=== PATIENT | female | born 1990 | race African-American/Black ===

== ENCOUNTER 2017-03-20 17:24 | Emergency (ER) | payer SELFPAY ==
--- NOTE | 2017-03-20 17:49 | ER Document Report ---
ED Medical Screen (RME) - General Chief Complaint: Abdominal Pain Stated Complaint: STOMACH PAIN Time Seen by Provider: 03/20/17 17:47 Mode of Arrival: Ambulatory Information source: Patient TRAVEL OUTSIDE OF THE [place] IN LAST 30 DAYS: No - HPI Patient complains to provider of: abd pain; urinary sx's Onset: Other - pt started azo OTC for presumed UTI earlier this week. Urinary symptoms with dysuria and frequency have continued. - Related Data Allergies/Adverse Reactions: No Known Allergies Allergy (Unverified 03/20/17 17:37) Past Medical History Renal/ Medical History: Denies: Hx Peritoneal Dialysis Physical Exam - Vital signs Vitals: Temp Pulse Resp BP Pulse Ox 98.6 F 101 H 18 136/79 H 96 03/20/17 17:36 03/20/17 17:36 03/20/17 17:36 03/20/17 17:36 03/20/17 17:36 Course - Vital Signs Vital signs: Temp Pulse Resp BP Pulse Ox 98.6 F 101 H 18 136/79 H 96 03/20/17 17:36 03/20/17 17:36 03/20/17 17:36 03/20/17 17:36 03/20/17 17:36
--- NOTE | 2017-03-20 18:18 | ER Document Report ---
ED GI/ - General Chief Complaint: Abdominal Pain Stated Complaint: STOMACH PAIN Time Seen by Provider: 03/20/17 17:47 Mode of Arrival: Ambulatory Information source: Patient Notes: 26 yo normally healthy except asthma female c/o urinary frequency, urgency, voiding small amount, fatique, right pelvic pain (when urge to urinate), dizzy, headache, nausea, low back pain all the way across x 4 days. Took AZO but symptoms persisted. Nausea but no vomiting or diarrhea. No hx kidney stones, no abd. surgery, no vaginal discharge, no dyspareunia, no new sex partner, hx chlamydia age 18, . TRAVEL OUTSIDE OF THE [place] IN LAST 30 DAYS: No - Related Data Allergies/Adverse Reactions: No Known Allergies Allergy (Unverified 03/20/17 17:37) Home Medications: Current Home Medications Acetaminophen [Tylenol Arthritis] 650 mg PO DAILY 03/20/17 [History] Pumpkin Seed Extract/Soy Germ [Azo Bladder Control Capsule] 300 mg PO DAILY 02/24 [History] Past Medical History - General Information source: Patient - Social History Smoking Status: Never Smoker Frequency of alcohol use: None Drug Abuse: None Lives with: Family Family History: Reviewed & Not Pertinent Patient has suicidal ideation: No Patient has homicidal ideation: No - Medical History Medical History: Negative Renal/ Medical History: Denies: Hx Peritoneal Dialysis Surgical Hx: Negative Review of Systems - Review of Systems Constitutional: No symptoms reported. denies: Diaphoresis EENT: No symptoms reported Cardiovascular: No symptoms reported Respiratory: No symptoms reported Gastrointestinal: No symptoms reported Genitourinary: See HPI Female Genitourinary: See HPI Musculoskeletal: No symptoms reported Skin: No symptoms reported Hematologic/Lymphatic: No symptoms reported Neurological/Psychological: No symptoms reported Physical Exam - Vital signs Vitals: Temp Pulse Resp BP Pulse Ox 98.6 F 101 H 18 136/79 H 96 03/20/17 17:36 03/20/17 17:36 03/20/17 17:36 03/20/17 17:36 03/20/17 17:36 Interpretation: Normal - General General appearance: Appears well, Alert In distress: None - HEENT Head: Normocephalic, Atraumatic Eyes: Normal Pupils: PERRL Neck: Supple - Respiratory Respiratory status: No respiratory distress Chest status: Nontender Breath sounds: Normal Chest palpation: Normal - Cardiovascular Rhythm: Regular Heart sounds: Normal auscultation Murmur: No - Abdominal Inspection: Normal Distension: No distension Bowel sounds: Normal Tenderness: Nontender. No: Tender Organomegaly: No organomegaly - Back Back: Normal, Nontender. No: CVA tenderness - Extremities General upper extremity: Normal inspection, Nontender, Normal color, Normal ROM , Normal temperature General lower extremity: Normal inspection, Nontender, Normal color, Normal ROM , Normal temperature, Normal weight bearing. No: Narda's sign - Neurological Neuro grossly intact: Yes Cognition: Normal Orientation: AAOx4 [place] Coma Scale Eye Opening: Spontaneous Shahrzad Coma Scale Verbal: Oriented Shahrzad Coma Scale Motor: Obeys Commands Shahrzad Coma Scale Total: 15 Speech: Normal Motor strength normal: LUE, RUE, LLE, RLE Sensory: Normal - Psychological Associated symptoms: Normal affect, Normal mood - Skin Skin Temperature: Warm Skin Moisture: Dry Skin Color: Normal Course - Re-evaluation Re-evalutation: 03/20/17 urine culture pending, will treat for UTI, sx most consistant with cystitis - Vital Signs Vital signs: Temp Pulse Resp BP Pulse Ox 98.8 F 86 18 129/80 H 99 03/20/17 19:32 03/20/17 19:32 03/20/17 19:32 03/20/17 19:32 03/20/17 19:32 - Laboratory Result Diagrams: 03/20/17 18:00 03/20/17 18:00 Laboratory results interpreted by me: 03/20/17 03/20/17 18:00 18:00 WBC 11.6 H Urine Nitrite POSITIVE H Urine Urobilinogen 4.0 H Urine Ascorbic Acid 20 H Discharge - Discharge Clinical Impression: Urinary tract infection Qualifiers: Urinary tract infection type: site unspecified Hematuria presence: without hematuria Qualified Code(s): N39.0 - Urinary tract infection, site not specified Condition: Good Disposition: HOME, SELF-CARE Instructions: Cephalexin ([facility]), Urinary Tract Infection ([facility]) Additional Instructions: plenty of fluids may continue the AZO for few days to er if increased pain, fever, chills, vomiting Prescriptions: Cephalexin [Cephalexin 500 MG Capsule] 500 mg PO QID #30 capsule Forms: Return to Work
[2017-03-20 18:30] LABS: ABSOLUTE BASOPHILS # (AUTO) 0.1 10^3/uL (0.0-0.2); ABSOLUTE EOSINOPHILS # (AUTO) 0.2 10^3/uL (0.0-0.6); ABSOLUTE LYMPHOCYTES (AUTO) 2.9 10^3/uL (0.5-4.7); ABSOLUTE MONOCYTES (AUTO) 0.7 10^3/uL (0.1-1.4); ABSOLUTE NEUT (AUTO) 7.7 10^3/uL (1.7-8.2); BASOPHILS % (AUTO) 0.7 % (0-2); HEMATOCRIT 39.2 % (36.0-47.0); HEMOGLOBIN 13.2 g/dL (12.0-15.5); HGB HCT DIFFERENCE 0.4; LYMPHOCYTES % (AUTO) 25.4 % (13-45); MEAN CORPUSCULAR HEMOGLOBIN 27.7 pg (27.0-33.4); MEAN CORPUSCULAR HGB CONC 33.8 g/dL (32.0-36.0); MEAN CORPUSCULAR VOLUME 82 fl (80-97); MONOCYTES % (AUTO) 5.6 % (3-13); RED BLOOD COUNT 4.78 10^6/uL (3.72-5.28); RED CELL DISTRIBUTION WIDTH 13.9 % (11.5-14.0); SEGMENTED NEUTROPHILS % (AUTO) 66.3 % (42-78); WHITE BLOOD COUNT 11.6 10^3/uL (4.0-10.5)
[2017-03-20 18:31] LABS: AMORPHOUS SEDIMENT,URINE TRACE /HPF; APPEARANCE,URINE SLIGHTLY-CLOUDY; BILIRUBIN,URINE NEGATIVE (NEGATIVE); GLUCOSE, URINE NEGATIVE (NEGATIVE); KETONES,URINE NEGATIVE (NEGATIVE); LEUKOCYTE ESTERASE,URINE NEGATIVE (NEGATIVE); NITRITE,URINE POSITIVE (NEGATIVE); PROTEIN,URINE NEGATIVE (NEGATIVE); URINE SPECIFIC GRAVITY 1.027
[2017-03-20 18:50] LABS: ALANINE AMINOTRANSFERASE 27 U/L (9-52); ALBUMIN 4.6 g/dL (3.5-5.0); ALKALINE PHOSPHATASE 70 U/L (38-126); ANION GAP 13 (5-19); ASPARTATE AMINO TRANSFERASE 20 U/L (14-36); BILIRUBIN,DIRECT 0.1 mg/dL (0.0-0.4); BILIRUBIN,TOTAL 0.5 mg/dL (0.2-1.3); BLOOD UREA NITROGEN 11 mg/dL (7-20); CALCIUM 9.5 mg/dL (8.4-10.2); CARBON DIOXIDE 25 mmol/L (22-30); CHLORIDE 104 mmol/L (98-107); CREATININE RESULT 0.59 mg/dL (0.52-1.25); GLUCOSE 90 mg/dL (75-110); POTASSIUM 4.2 mmol/L (3.6-5.0); SODIUM 142.4 mmol/L (137-145); TOTAL PROTEIN 7.8 g/dL (6.3-8.2)
[2017-03-20] MEDS ORDERED: CEPHALEXIN 500 MG CAPSULE PO ONE (19:25)
[2017-03-20 19:33] VITALS: BP 129/80
== END 2017-03-20 19:35 | disposition home or self-care (01) ==
LOC: ER 17:24
DX: N39.0 Urinary tract infection, site not specified (principal); R10.9 Unspecified abdominal pain; R35.0 Frequency of micturition; R39.15 Urgency of urination; R53.83 Other fatigue; R10.2 Pelvic and perineal pain; R42 Dizziness and giddiness; R51 Headache; R11.0 Nausea; M54.5 Low back pain; Z79.899 Other long term (current) drug therapy
CPT/HCPCS: 36415; 80053; 81001; 84703; 85025; 87086; 87088; 99284

== ENCOUNTER 2017-08-05 13:18 | Emergency (ER) | payer SELFPAY ==
[2017-08-05 13:24] VITALS: BP 136/86
[2017-08-05] MEDS ORDERED: DEXAMETHASONE 4 MG TABLET PO ONE (14:39)
[2017-08-05] MEDS ORDERED: IBUPROFEN 800 MG TABLET PO ONE (14:39)
[2017-08-05] MEDS ORDERED: PENICILLIN G BENZATHINE 1.2 MILLION UNIT/2 ML DISP.SYRIN IM ONE (14:40)
--- NOTE | 2017-08-05 14:42 | ER Document Report ---
HPI - HPI Patient complains to provider of: Sore throat Onset: Other - 2 days Quality of pain: Achy Pain Level: 4 Context: Patient presents complaining of sore throat for the past 2 days. Patient states that her child was recently diagnosed with strep and she suspects she has the same. Patient does report fever yesterday. Associated Symptoms: Nonproductive cough - Mild cough, Fever, Sore throat Exacerbated by: Denies Relieved by: Denies Similar symptoms previously: Yes Recently seen / treated by doctor: No - ROS ROS below otherwise negative: Yes Systems Reviewed and Negative: Yes All other systems reviewed and negative - CONSTITUTIONAL Constitutional: DENIES: Fever - EENT EENT: REPORTS: Sore Throat - RESPIRATORY Respiratory: REPORTS: Coughing - GASTROINTESTINAL Gastrointestinal: DENIES: Patient vomiting, Diarrhea - MUSCULOSKELETAL Musculoskeletal: DENIES: Neck Pain - DERM Skin Color: Normal Skin Problems: None Past Medical History - General Information source: Patient - Social History Smoking Status: Never Smoker Frequency of alcohol use: None Drug Abuse: None Occupation: Call center Lives with: Family Family History: Reviewed & Not Pertinent Patient has suicidal ideation: No Patient has homicidal ideation: No Pulmonary Medical History: Reports: Hx Asthma Renal/ Medical History: Denies: Hx Peritoneal Dialysis Surgical Hx: Negative Vertical Provider Document - CONSTITUTIONAL Agree With Documented VS: Yes Exam Limitations: No Limitations General Appearance: WD/WN, No Apparent Distress - INFECTION CONTROL TRAVEL OUTSIDE OF THE [place] IN LAST 30 DAYS: No - HEENT HEENT: Atraumatic, Normocephalic, Pharyngeal Tenderness, Pharyngeal Erythema. negative: Tympanic Membrane Red, Tympanic Membrane Bulging - NECK Neck: Lymphadenopathy-Left, Lymphadenopathy-Right - RESPIRATORY Respiratory: Breath Sounds Normal, No Respiratory Distress, Chest Non-Tender - CARDIOVASCULAR Cardiovascular: Regular Rate, Regular Rhythm, No Murmur - BACK Back: Normal Inspection - MUSCULOSKELETAL/EXTREMETIES Musculoskeletal/Extremeties: MAEW - NEURO Level of Consciousness: Awake, Alert, Appropriate Motor/Sensory: No Motor Deficit - DERM Integumentary: Warm, Dry, No Rash Course - Vital Signs Vital signs: Temp Pulse Resp BP Pulse Ox 98.4 F 108 H 14 136/86 H 97 08/05/17 13:23 08/05/17 13:23 08/05/17 13:23 08/05/17 13:23 08/05/17 13:23 Discharge - Discharge Clinical Impression: Tonsillitis, Strep throat exposure Condition: Stable Disposition: HOME, SELF-CARE Instructions: Corticosteroid Medication ([facility]), Use of Lztc-Rln-Arlhnrd Ibuprofen ([facility]), Tonsillitis ([facility]) Additional Instructions: return as needed for any new or worsening symptoms follow up with your primary care provider as needed for a recheck Prescriptions: Naproxen [Naprosyn 250 Nmg Tablet] 1 tab PO BID #14 tablet Forms: Return to Work Referrals: [facility] [Provider Group] - Follow up as needed [facility] [Provider Group] - Follow up as needed
== END 2017-08-05 15:00 | disposition home or self-care (01) ==
LOC: ER 13:18
DX: J03.90 Acute tonsillitis, unspecified (principal); R05 Cough; R50.9 Fever, unspecified; J45.909 Unspecified asthma, uncomplicated
CPT/HCPCS: 99282; 96372; J0561

== ENCOUNTER 2017-08-27 23:54 | Emergency (ER) | payer SELFPAY ==
--- NOTE | 2017-08-28 01:16 | ER Document Report ---
ED Medical Screen (RME) - General Chief Complaint: Vaginal Discharge Stated Complaint: ABDOMINAL PAIN Time Seen by Provider: 08/28/17 01:13 Mode of Arrival: Ambulatory Information source: Patient TRAVEL OUTSIDE OF THE [place] IN LAST 30 DAYS: No - HPI Patient complains to provider of: briana silva Notes: 08/28/17 01:14 Patient is here with complaints of abdominal pain. She states that she had an IUD placed in April and since that time she has been having problems. She has had multiple episodes of pectoral vaginosis, vaginal infections, urinary tract infections. States for the last 4 days she has had abdominal pain with vaginal discharge. She states that the pain is in the right lower right upper aspect of her abdomen. She has been urinating more frequently but states that she does not feel that she is completely emptying her bladder. No fevers. Physical exam: Patient is in no distress, nontoxic appearance. Her vital signs are stable. Abdominal tenderness on limited triage abdominal exam. Plan: CBC, CMP, lipase, urine, urine , wet prep, GC chlamydia, pelvic exam. An initial examination was made on the patient as part of the triage process, and it was determined a more comprehensive evaluation was necessary. Initial labs were ordered and patient was transferred to another provider in the ED who assumed care and finished evaluation and plan. - Related Data Allergies/Adverse Reactions: No Known Allergies Allergy (Verified 08/05/17 13:19) Past Medical History Pulmonary Medical History: Reports: Hx Asthma Renal/ Medical History: Denies: Hx Peritoneal Dialysis Physical Exam - Vital signs Vitals: Temp Pulse Resp BP Pulse Ox 98.2 F 83 16 143/81 H 99 08/28/17 00:04 08/28/17 00:04 08/28/17 00:04 08/28/17 00:04 08/28/17 00:04 Course - Vital Signs Vital signs: Temp Pulse Resp BP Pulse Ox 98.2 F 83 16 143/81 H 99 08/28/17 00:04 08/28/17 00:04 08/28/17 00:04 08/28/17 00:04 08/28/17 00:04
[2017-08-28 01:17] LABS: APPEARANCE,URINE SLIGHTLY-CLOUDY; BILIRUBIN,URINE SMALL (NEGATIVE); COLOR,URINE AMBER; GLUCOSE, URINE NEGATIVE (NEGATIVE); KETONES,URINE TRACE mg/dL (NEGATIVE); LEUKOCYTE ESTERASE,URINE NEGATIVE (NEGATIVE); NITRITE,URINE NEGATIVE (NEGATIVE); PROTEIN,URINE 100 mg/dL (NEGATIVE); URINE SPECIFIC GRAVITY 1.041
--- NOTE | 2017-08-28 01:37 | ER Document Report ---
ED General - General Chief Complaint: Vaginal Discharge Stated Complaint: ABDOMINAL PAIN Time Seen by Provider: 08/28/17 01:13 Mode of Arrival: Ambulatory TRAVEL OUTSIDE OF THE [place] IN LAST 30 DAYS: No - HPI Notes: Patient is a 26-year-old female who presents to the ED complaining of right lower pelvic pain since placement of her IUD this past April. Patient states that she has also had issues with bacterial vaginosis, yeast infections, and UTIs since the placement of that IUD. Patient states that she has had vaginal discharge associated with right lower pelvic pain over the last few days. Patient states that she does have an increase in frequency of urination and feeling of incomplete void, but no burning or hematuria. Patient states that she has not been sexually active since her last STD test 2 months ago. She denies any drug allergies, smoking, IV drug use. She has no other concerns or complaints at this time. Denies any surgical history. Denies any headache, fever, URI, sore throat, chest pain, palpitations, syncope, cough, shortness of breath, wheeze, dyspnea, nausea/vomiting/diarrhea, urinary retention, dysuria, hematuria, back pain, or rash. - Related Data Allergies/Adverse Reactions: No Known Allergies Allergy (Verified 08/05/17 13:19) Past Medical History - General Information source: Patient - Social History Smoking Status: Never Smoker Family History: Reviewed & Not Pertinent Pulmonary Medical History: Reports: Hx Asthma Renal/ Medical History: Denies: Hx Peritoneal Dialysis Review of Systems - Review of Systems -: Yes All other systems reviewed and negative Physical Exam - Vital signs Vitals: Temp Pulse Resp BP Pulse Ox 98.2 F 83 16 143/81 H 99 08/28/17 00:04 08/28/17 00:04 08/28/17 00:04 08/28/17 00:04 08/28/17 00:04 - Notes Notes: PHYSICAL EXAMINATION: GENERAL: Well-appearing, well-nourished and in no acute distress. LUNGS: Breath sounds clear to auscultation bilaterally and equal. No wheezes rales or rhonchi. HEART: Regular rate and rhythm without murmurs ABDOMEN: Soft, nontender, nondistended abdomen. No guarding, no rebound. No masses appreciated. Normal bowel sounds present. No CVA tenderness bilaterally. Female : No inguinal adenopathy. External genitalia without erythema, lesions , or masses. Vaginal mucosa pink with scant white discharge. Cervix parous, pink, and without discharge. Uterus is smooth. No adnexal tenderness. Musculoskeletal: FROM to passive/active. Strength 5+/5. Extremities: No cyanosis/clubbing/edema b/l. Peripheral pulses 2+. Capillary refill less than 3 seconds. NEUROLOGICAL: Normal speech, normal gait. Normal sensory, motor exams PSYCH: Normal mood, normal affect. SKIN: Warm, Dry, normal turgor, no rashes or lesions noted. Course - Re-evaluation Re-evalutation: 08/28/17 03:06 Patient is an afebrile, well-hydrated, 26-year-old female who presents to the ED with bacterial vaginosis. Vitals are acceptable. PE is otherwise unremarkable. CBC, CMP, urinalysis are acceptable at this time. See wet mount results. Chlamydia and gonorrhea tests are pending. Zithromax and Rocephin provided today. Patient is tolerating p.o. without any difficulties. Ultrasound showed a 1.2cm indeterminate hyperechoic structure left ovary- recommended US recheck in 6-12 weeks. No other labs or imaging warranted at this time based on H&P. I will be sending her home with a prescription for flagyl to take as directed. Low suspicion/risk for acute appendicitis, bowel obstruction, acute cholecystitis, acute cholangitis, perforated diverticulitis, incarcerated hernia, pancreatitis, perforated ulcer, peritonitis, sepsis, pelvic inflammatory disease, ectopic , tubo-ovarian abscess, ovarian torsion, or other systemic emergent condition at this time. Patient is aware that her condition can change from initial presentation and she needs to monitor symptoms closely and seek medical attention if any acute changes. Appendix obs reviewed. Conservative measures otherwise for symptoms. Recheck with OBGYN in 3-5 days. Recheck with your PCM in 3-5 days. Return to the ED with any worsening/concerning symptoms otherwise as reviewed in discharge. Patient is in agreement. - Vital Signs Vital signs: Temp Pulse Resp BP Pulse Ox 98.2 F 83 16 143/81 H 99 08/28/17 00:04 08/28/17 00:04 08/28/17 00:04 08/28/17 00:04 08/28/17 00:04 - Laboratory Result Diagrams: 08/28/17 02:05 08/28/17 02:05 Laboratory results interpreted by me: 08/28/17 08/28/17 08/28/17 00:51 02:05 02:05 WBC 11.7 H RDW 14.6 H Sodium 147.4 H Direct Bilirubin 0.5 H Urine Protein 100 H Urine Ketones TRACE H Urine Bilirubin SMALL H Urine Urobilinogen 2.0 H Urine Ascorbic Acid 20 H Procedures - Pelvic Exam Pelvic exam Time completed: 01:55 Cultures obtained: Yes Wet prep obtained: Yes Bimanual exam performed: Yes - neg Witnessed by: Female nurse, valeriy Discharge - Discharge Clinical Impression: Bacterial vaginosis Condition: Stable Disposition: HOME, SELF-CARE Instructions: Metronidazole ([facility]), Observation for Appendicitis ([facility]), Vaginosis, Bacterial ([facility]) Additional Instructions: You will need another ultrasound performed in 6-12 weeks, unless directed otherwise by PCM/OBGYN to further assess the indeterminate object of the left ovary. maintain fluid intake Proper hygenic technique Keep the skin clean Safe sexual practices with condoms everytime Tylenol/ibuprofen as needed Your chlamydia/Ghon test are pending and you will be notified if positive results; you may call in 1 day for the results as well Return immediately if symptoms worsen F/u with your PCM/OBGYN in 3-5 days for a recheck Return to the ED with any development of BILL/fever, trouble with vision, eye redness, worsening pain, urethral discharge, urinary retention, blood in the urine, flank pain, abdominal pain, n/v, Chest Pain, shortness of breath, joint pains, trouble breathing, or any other worsening/concerning symptoms as needed otherwise. Prescriptions: Metronidazole [Flagyl] 500 mg PO BID #14 tablet Forms: Elevated Blood Pressure Referrals: [facility] [Provider Group] - Follow up in 3-5 days
[2017-08-28 02:24] LABS: T.VAGINALIS (WET MOUNT) NO TRICHOMONAS SEEN; YEAST (WET MOUNT) NO YEAST SEEN
[2017-08-28 02:25] LABS: BACTERIA (WET MOUNT) 4+ BACTERIA SEEN; EPITHELIALS (WET MOUNT) 3+ EPITHELIALS SEEN; RBCS (WET MOUNT) RARE RBCS SEEN; WBCS (WET MOUNT) FEW WBCS SEEN
[2017-08-28 02:26] LABS: ALANINE AMINOTRANSFERASE 23 U/L (9-52); ALBUMIN 4.5 g/dL (3.5-5.0); ALKALINE PHOSPHATASE 62 U/L (38-126); ANION GAP 13 (5-19); ASPARTATE AMINO TRANSFERASE 25 U/L (14-36); BILIRUBIN,DIRECT 0.5 mg/dL (0.0-0.4); BILIRUBIN,TOTAL 0.6 mg/dL (0.2-1.3); BLOOD UREA NITROGEN 11 mg/dL (7-20); CALCIUM 9.7 mg/dL (8.4-10.2); CARBON DIOXIDE 28 mmol/L (22-30); CHLORIDE 106 mmol/L (98-107); GLUCOSE 99 mg/dL (75-110); LIPASE 76.2 U/L (23-300); POTASSIUM 4.4 mmol/L (3.6-5.0); SODIUM 147.4 mmol/L (137-145)
[2017-08-28 02:28] LABS: ABSOLUTE BASOPHILS # (AUTO) 0.1 10^3/uL (0.0-0.2); ABSOLUTE EOSINOPHILS # (AUTO) 0.4 10^3/uL (0.0-0.6); ABSOLUTE LYMPHOCYTES (AUTO) 3.8 10^3/uL (0.5-4.7); ABSOLUTE MONOCYTES (AUTO) 0.7 10^3/uL (0.1-1.4); ABSOLUTE NEUT (AUTO) 6.8 10^3/uL (1.7-8.2); BASOPHILS % (AUTO) 0.7 % (0-2); EOSINOPHILS % (AUTO) 3.1 % (0-6); HEMATOCRIT 36.9 % (36.0-47.0); HEMOGLOBIN 12.2 g/dL (12.0-15.5); LYMPHOCYTES % (AUTO) 32.2 % (13-45); MEAN CORPUSCULAR HEMOGLOBIN 27.1 pg (27.0-33.4); MEAN CORPUSCULAR HGB CONC 33.1 g/dL (32.0-36.0); MEAN CORPUSCULAR VOLUME 82 fl (80-97); PLATELET COUNT 362 10^3/uL (150-450); RED BLOOD COUNT 4.51 10^6/uL (3.72-5.28); RED CELL DISTRIBUTION WIDTH 14.6 % (11.5-14.0); TOTAL CELLS COUNTED % (AUTO) 100 %; WHITE BLOOD COUNT 11.7 10^3/uL (4.0-10.5)
[2017-08-28] MEDS ORDERED: LIDOCAINE 1% INJ-PF (10 MG/ML) 30 ML SDV INJ ONE (03:05)
[2017-08-28] MEDS ORDERED: CEFTRIAXONE INJ 250 MG VIAL IM ONE (03:05)
[2017-08-28] MEDS ORDERED: AZITHROMYCIN 250 MG TABLET PO ONE (03:06)
--- NOTE | 2017-08-28 03:16 | RADIOLOGY REPORT (SQ) ---
EXAM DESCRIPTION: U/S NON OB PEL TV W/DOPPLER CLINICAL HISTORY: 26 years Female, pelvic pain LMP 08/24/2017 COMPARISON: None. TECHNIQUE: Complete pelvic ultrasound with transvaginal imaging. FINDINGS: The uterus measures 8.1 x 5.9 x 4.4 cm. Endometrium measures 0.[address] with strings visualized in the cervix. No myometrial abnormalities. Cervical length of 2.0 cm. The right ovary measures 3.3 x 2.7 x 2.7 cm. The left ovary measures 2.7 x 1.7 x 1.8 cm. The left ovary there is an ill-defined hyperechoic structure of indeterminate etiology measuring 1.2 x 0.9 x 1.0 cm Limited color spectral Doppler imaging demonstrates flow within the ovaries bilaterally. IMPRESSION: 1. In the left ovary there is a 1.2 cm indeterminate hyperechoic structure without definite characteristics of a dermoid. Follow-up ultrasound in 6-12 weeks recommended. If unchanged, continued ultrasound follow-up or MRI with IV contrast would be recommended. 2. An IUD is identified in appropriate position.
[2017-08-28 03:52] VITALS: BP 133/91
[2017-08-28 05:17] LABS: CHLAM PCR NOT DETECTED (NOT DETECT); GON PCR NOT DETECTED (NOT DETECT)
== END 2017-08-28 03:57 | disposition home or self-care (01) ==
LOC: ER 23:54
DX: N76.0 Acute vaginitis (principal); B96.89 Other specified bacterial agents as the cause of diseases classified elsewhere; R10.31 Right lower quadrant pain; Z97.5 Presence of (intrauterine) contraceptive device
CPT/HCPCS: 99284; 96372; 36415; 87210; 83690; 85025; 81025; 80053; 81001; 87491; 87591; 76830; 93976; J3490; J0696